=== PATIENT | male | born 1945 | race Caucasian/White ===

== ENCOUNTER → 2017-07-14 | Outpatient (CLI) | payer BC ==
[~2017-07-14] MED LIST: ASPEC325 PO; CLB200 PO; CLC100 PO; FINA5TAB PO; HYDR-5688 PO; NEBI10TA2 PO; OXYSR10 PO
--- NOTE | 2017-07-14 19:39 | DIAGNOSTIC IMAGING REPORT ---
KUB CLINICAL HISTORY: Ileus. FINDINGS: 2 AP supine abdominal radiographs are correlated with abdominal CT dated 10/28/2009. There is a nonobstructed abdominal bowel gas pattern noting mild colonic fecal retention. No evidence of intraperitoneal free air is seen on these supine images. Calcified phleboliths are observed in the pelvis. The skeletal structures are osteopenic. Mild degenerative change is noted in the lumbar spine. The bony pelvis appears intact. IMPRESSION: Nonobstructed bowel gas pattern. Electronically signed by: Sidney Bustamante M.D. 07/14/2017 7:38 PM Dictated Date/Time: 07/14/2017 7:36 PM
== END | disposition home or self-care (01) ==
LOC: C.RAD 18:59
PROVIDERS: ATTEND Student in an Organized Health Care Education/Training Program
DX: K56.7 Ileus, unspecified (principal); K42.9 Umbilical hernia without obstruction or gangrene